=== PATIENT | female | born 1960 | race Caucasian/White ===

== ENCOUNTER 2017-01-17 09:02 | Emergency (ER) | payer MEDICARE ==
[2017-01-17 09:07] VITALS: BP 128/67; PULSE 62; RESP 16; O2SAT 100
--- NOTE | 2017-01-17 09:37 | ED.REPORT ---
HPI-General Illness Date of Service Jan 17, 2017 ED Provider: Harper Segura MD The patient is a 56 year old female with history of dementia who was brought to the emergency department by EMS after she had a ground level fall around 0730 this morning. Her did not see the fall but believes she fell on top of a pile of coats. Her believes she landed on her buttocks first and then hit her head. He called medics to come an evaluate the patient who offered transport but the family declined. Soon after she was evaluated by medics she went to use the restroom with the aid of her and she "wilted" in her 's arms. He was able to lay her down on the floor. She did not lose consciousness. Her ran to catch the medics before they left and they decided to bring her to the emergency department. She has been drinking and eating normally. The patient has no complaints at this time. She has had less than her normal bowel movements over the last 2 days. She has not had a runny nose, cough, fever, vomiting or diarrhea. Her is her main antisqueak chalker. Nursing Notes Stated Complaint: GOUND LEVEL FALL Chief Complaint: General Complaint Nursing Notes Reviewed: Yes Scheduled Cephalexin (Keflex) 500 Mg Capsule 500 MG PO BID Scheduled PRN Polyethylene Glycol 3350 (Miralax) 17 Gm Powd.pack 17 GM PO BID PRN PRN For Constipation General Time Seen by MD: 09:36 Chief Complaint Other (ground level fall) Hx Obtained From: Patient, Spouse, EMS Arrived By: Ambulance Sudden in Onset?: No Onset Occurred: 1 - 4 hours ago Symptom Duration: Since onset Severity: Current: No pain currently Severity: Maximum: No pain Recent Healthcare: No recent doctor visit, No recent hospitalization Similar Sx Previous: No Past Medical History Past Medical History Notes: No known drug allergies Past Medical History Dementia Family History Noncontributory Smoking History Unknown if Ever Smoker Social History Other Social History: Good social support, , Local resident Ambulatory Status Independent Review of Systems Full Review of Systems Constitutional: Denies: Fever Ears / Nose / Throat: Denies: Nasal congestion Respiratory: Denies: Non-productive cough GI: Reports: Constipation, Denies: Diarrhea, Vomiting Neurologic: Reports: Change LOC ("wilted" in his arms), Weakness, Denies: Headache, Syncope Complete sys rev & neg: except as marked. Physical Exam Vital Signs Vital Signs Date Time Temp Pulse Resp B/P Pulse Ox O2 Delivery O2 Flow Rate FiO2 01/17/17 09:07 36.8 62 16 128/67 100 Initial VS: Reviewed ENT: Mucous membranes moist, Conjunctiva normal, No scleral icterus Neck: Supple, Non-tender, Full range of motion Respiratory: Breath sounds normal, Clear to auscultation, No respiratory distress Cardiovascular: Regular rate & rhythm, Heart sounds normal, Intact distal pulses Abdomen / GI: Soft, Non-tender, No guarding, No rebound, No distention Lymphatic: No lymphadenopathy Extremities: Vascular intact, Neuro intact, No swelling, No tenderness Skin: Warm, Dry, No cyanosis Psychiatric: Mood/affect normal, Behavior normal, Normal thought content General/Constitutional: Awake, Alert, Cooperative Head / Eyes: Normocephalic, PERRL, EOMI Slight hematoma to the right posterior occiput. Back: Non-tender, No midline vertebral tend Neurologic: Oriented X3, Speech NL, No motor deficits, No sensory deficits Moving all extremities. Interpretation & Diagnostics Lab Results Interpretation Result Diagram: 01/17/17 1154 01/17/17 1154 Test 01/17/17 11:54 01/17/17 14:01 White Blood Count 15.5th/mm3 (3.8-10.1) Red Blood Count 4.87mil/mm3 (3.90-5.20) Hemoglobin 14.7g/dL (12.0-15.6) Hematocrit 42.7% (35.0-46.0) Mean Corpuscular Volume 87.7fL (81-100) Mean Corpuscular Hemoglobin 30.2pg (27.0-35.0) Mean Corpuscular Hemoglobin Concent 34.4% (32.0-37.0) Red Cell Distribution Width 12.1% (12.3-15.4) Platelet Count 176bil/L (150-400) Neutrophils (%) (Auto) 88.4% (40-74) Lymphocytes (%) (Auto) 7.8% (14-46) Monocytes (%) (Auto) 3.3% (4-12) Eosinophils (%) (Auto) 0.2% (0-5) Basophils (%) (Auto) 0.1% (0-3) Sodium Level 135mEq/L (134-144) Potassium Level 3.8mEq/L (3.5-5.2) Chloride Level 99mEq/L (97-108) Carbon Dioxide Level 16mmol/L (18-29) Blood Urea Nitrogen 14mg/dL (6-24) Creatinine 0.67mg/dL (0.57-1.00) Estimat Glomerular Filtration Rate 129mL/min (>59) Glucose Level 116mg/dL (60-99) Calcium Level 9.9mg/dL (8.5-10.1) Magnesium Level 2.0mg/dL (1.6-2.6) Troponin T < 0.010ug/L (0.0-0.011) Urine Color Yellow (YELLOW) Urine Appearance Hazy (CLEAR,HAZY) Urine pH 6.5 (5.0-8.0) Urine Specific [place] 1.010 (1.003-1.035) Urine Protein 30mg/dL (NEG,TRACE) Urine Glucose (UA) Negativemg/dL (NEGATIVE) Urine Ketones Negativemg/dL (NEGATIVE) Urine Occult Blood Trace (NEGATIVE) Urine Nitrite Negative (NEGATIVE) Urine Bilirubin Negative (NEGATIVE) Urine Urobilinogen Normalmg/dL (NORMAL) Urine Leukocyte Esterase Small (NEGATIVE) Urine RBC 0-2/hpf (0-2) Urine WBC 6-10/hpf (0-5) Urine Epithelial Cells Few/hpf (NONE-MOD) Urine Crystals Amorphous urates (NONE Urine Bacteria Moderate/hpf (NONE-FEW) Urine Hyaline Casts None/lpf (NONE) Urine Granular Casts None seen (NONE SEEN) Urine Waxy Casts None seen (NONE SEEN) Urine Red Blood Cell Casts None seen (NONE SEEN) Urine White Blood Cell Casts None seen (NONE SEEN) Urine Mucus Present (None Seen) Urine Trichomonas None seen (NONE SEEN) Urine Yeast None (NONE SEEN) Urinalysis Comment None Urine Culture Reflexed Indicated ECG Interpretation ECG Interpretation: Sinus rhythm with a rate of 76 Increased QTc Otherwise negative Time: 10:50 Interpreted by: ED physician X-Ray Chest Interpretation Chest Xray Interpretation: No acute disease seen View: Portable, 1 view Interpretation / Wet Read by: Wet read ED physician X-Ray Interpretation Xray Interpretation: IMPRESSION: Prominent stool consistent with constipation. No obstruction. Dictated by: Aisha Sharma M.D. on 01/17/2017 at 12:34 Study Performed: KUB Interpretation / Wet Read by: Interpret - Radiologist CT Head Interpretation IMPRESSION: 1. 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 Further evaluation by MRI imaging of the brain with and without contrast is suggested. 2. Apparent right posterior parietal scalp contusion with no secondary fracture or intracranial hemorrhage. 3. Benign bilateral basal ganglia calcifications. 4. Dilatation of the ventricles appear out proportion to patient age and degree of cortical atrophy, raising possibility of obstructive or normal pressure hydrocephalus. Dictated by: Miguelangel Pablo M.D. on 01/17/2017 at 11:56 Re-Eval/Medical Decision Med Decision/Clinical Course The patient was brought in by her for evaluation after a fall. She does not have any physical complaints at this time. CT reveals enlarged ventricles, she may becoming unsteady related to normal pressure hydrocephalus. The patient has a neurologist and family was instructed to make an appointment with them. Given the history of dementia and likely atrophy, the patient has an older brain and so CT was obtained to evaluate for bleeding. CT is negative. I also wish to look for source of infection given she does not usually fall, her evaluation demonstrated a urinary tract infection. The patient was also constipated and was treated with an enema. Source of Hx: Old records, EMS, Family Time of Eval: 14:46 Re-Evaluation/Progress Note: Rechecked the patient. Discussed results with the patient and family. They understand and agree with plan for discharge. All questions were addressed. Counseled Regarding: Diagnosis, Lab results, Need for follow-up, When/why to return to ED Discharge & Departure Primary Impression: Fall from ground level Additional Impressions: Urinary tract infection Urinary tract infection type: site unspecified Hematuria presence: without hematuria Qualified Code: N39.0 - Urinary tract infection, site not specified Constipation Constipation type: unspecified constipation type Qualified Code: K59.00 - Constipation, unspecified Disposition: Home Discharge Condition All VS Reviewed: Yes Condition: Stable Patient Instructions: Constipation (ED), Urinary Tract Infection in Women (ED) Additional Instructions: Thank you for entrusting us with your care today. Your CT scan is concerning for normal pressure hydrocephalus. This should be followed up by a neurologist. Call your neurologist today to schedule a followup appointment for early next week. Your urinalysis does show evidence of a urinary tract infection. Please take the antibiotic Keflex as prescribed. Your abdominal x-ray shows evidence of constipation. Please use Miralax as prescribed. Seek care for any new or concerning symptoms. Referrals: Hernando Saez MD (PCP) Nico Attestation Portions of this note were transcribed by Em Butts. I, Dr. Segura personally performed the history, physical exam and medical decision-making; I reviewed and confirmed the accuracy of the information in the transcribed note. Signed by: Nico Hartmann, 01/17/2017 at 1500. copies to: Hernando Saez MD, Jena M MD Jan 17, 2017 09:37 Em Butts Jan 17, 2017 09:40
[2017-01-17 11:59] LABS: BASOPHILS % (AUTO) 0.1 % (0-3); EOSINOPHILS % (AUTO) 0.2 % (0-5); MONOCYTES % (AUTO) 3.3 % (4-12); Mean Corpuscular Hemoglobin 30.2 pg (27.0-35.0); Mean Corpuscular Volume 87.7 fL (81-100); NEUTROPHILS % (AUTO) 88.4 % (40-74); Platelet Count 176 bil/L (150-400)
--- NOTE | 2017-01-17 12:11 | DRSVH ---
PROCEDURE: CT BRAIN WITHOUT CONTRAST ([id number]) INDICATIONS: fall TECHNIQUE: Noncontrast 4.5 mm thick angled axial sections acquired from the foramen magnum to the vertex, with c oronal reformats. COMPARISON: None. FINDINGS: Image quality: Excellent. CSF spaces: Basal cisterns are patent. No extra-axial fluid collections. Ventricles are symmetrica lly enlarged in size, including dilatation of the temporal horns. Third ventricle is also enlarged me asuring 1.2 cm in width anteriorly. Brain: No midline shift. No intracranial hemorrhage. The pineal is enlarged measuring 1.5 x 1.6 cm in diameter by 1.4 cm craniocaudal. No cystic component seen. Small calcification in the anterior, lynn perior margin. Dense calcifications in the basal ganglia bilaterally. Walker-white matter interface is normal. Skull and face: Right posterior parietal scalp contusion, no underlying fracture. Calvarium and visu alized facial bones are intact, without suspicious lesions. Sinuses: Visualized sinuses and mastoids are clear. IMPRESSION: 1. 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 Further evaluation by MRI imaging of the brain with and without contrast is suggested. 2. Apparent right posterior parietal scalp contusion with no secondary fracture or intracranial hemor rhage. 3. Benign bilateral basal ganglia calcifications. 4. Dilatation of the ventricles appear out proportion to patient age and degree of cortical atrophy, raising possibility of obstructive or normal pressure hydrocephalus. Dictated by: Miguelangel Pablo M.D. on 01/17/2017 at 11:56 Approved by: Miguelangel Pablo M.D. on 01/17/2017 at 12:10
[2017-01-17 12:34] LABS: TROPONIN T < 0.010 ug/L (0.0-0.011)
--- NOTE | 2017-01-17 12:36 | DRSVH ---
PROCEDURE: X-RAY CHEST ONE VIEW, PORTABLE ([id number]) INDICATIONS: fall TECHNIQUE: One view of the chest was acquired. COMPARISON: None. FINDINGS: Surgical changes and devices: None. Lungs and pleura: No pleural effusions or pneumothorax. Lungs are clear. Mediastinum: Mediastinal contours appear normal. Heart size is normal. Bones and chest wall: No suspicious bony lesions. Overlying soft tissues appear unremarkable. IMPRESSION: No acute pulmonary process. Dictated by: Aisha Sharma M.D. on 01/17/2017 at 12:34 Approved by: Aisha Sharma M.D. on 01/17/2017 at 12:34
--- NOTE | 2017-01-17 12:36 | DRSVH ---
PROCEDURE: X-RAY KUB ([id number]) INDICATIONS: ABDOMINAL PAIN TECHNIQUE: One view of the abdomen acquired. COMPARISON: None. FINDINGS: Surgical changes and devices: None. Bowel: Bowel gas pattern is normal. Prominent stool. Soft tissues: No suspicious abdominal calcifications. Visualized solid organ contours appear normal in size. Bones: No suspicious bony lesions. IMPRESSION: Prominent stool consistent with constipation. No obstruction. Dictated by: Aisha Sharma M.D. on 01/17/2017 at 12:34 Approved by: Aisha Sharma M.D. on 01/17/2017 at 12:34
[2017-01-17] MEDS ORDERED: 0.9% Sodium Chloride 1,000 ML IV ONE (12:40)
[2017-01-17 14:31] LABS: APPEARANCE,URINE HAZY (CLEAR,HAZY); COLOR,URINE YELLOW (YELLOW); OCCULT BLOOD,URINE TRACE (NEGATIVE); PH,URINE 6.5 (5.0-8.0); UROBILINOGEN,URINE NORMAL (NORMAL)
[2017-01-17] MEDS ORDERED: CEPH-512 PO (14:51)
[2017-01-17] MEDS ORDERED: POLY17PO6 PO (14:51)
== END 2017-01-17 15:25 | disposition home or self-care (01) ==
LOC: EDBD 09:02 → SED 09:02
DX: N39.0 Urinary tract infection, site not specified (principal); K59.00 Constipation, unspecified; W19.XXXA Unspecified fall, initial encounter; Y93.89 Activity, other specified; Y92.002 Bathroom of unspecified non-institutional (private) residence as the place of occurrence of the external cause; Y99.8 Other external cause status
CPT/HCPCS: 36415; 70450; 71010; 74000; 80048; 81000; 83735; 84484; 85025; 87086; 87088; 93005; 96360; 99285; J7030